=== PATIENT | female | born 1970 | race Caucasian/White ===

== ENCOUNTER 2022-05-30 15:42 | Emergency (ER) | payer MEDICARE, MEDICAID ==
[~2022-05-30] VITALS: Ht 167.6 cm; Wt 104.5 kg
[~2022-05-30 15:42] MED LIST: ABILIFY10 M1 PO; ATORVASTATIN CA40 MG PO; PROTONIX40 M2 PO; [UNRECOGNIZED DRUG - OTHER] PO
[2022-05-30 15:54] VITALS: BP 125/66
[2022-05-30 16:01] VITALS: BP 124/73
[2022-05-30 16:31] VITALS: BP 117/64
[2022-05-30] MEDS ORDERED: OMNICEF300 M1 PO (17:00)
[2022-05-30] MEDS ORDERED: FLOXIN OTIC0.3 % OT (17:00)
[2022-05-30 17:01] VITALS: BP 135/75
[2022-05-30] MEDS ORDERED: PREDNISONE20 MG PO (17:05)
[2022-05-30] MEDS ORDERED: ALBUTEROL SUL0.083 % IN (17:05)
[2022-05-30] MEDS ORDERED: PROVENTIL HFA IN (17:05)
== END 2022-05-30 17:08 | disposition home or self-care (01) ==
LOC: ED 15:42
DX: J06.9 Acute upper respiratory infection, unspecified (principal); Z20.822 Contact with and (suspected) exposure to COVID-19